=== PATIENT | male | born 1990 | race African-American/Black ===

== ENCOUNTER 2016-06-27 01:29 | Emergency (ER) ==
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
[2016-06-27 04:04] VITALS: BP 128/70
--- NOTE | 2016-06-27 09:13 | Diag Imaging Result Document ---
PROCEDURE NAME: HEAD/C-SPINE W/O CONTRAST - 06/27/[address], 06/27/2016: A CT dose reduction protocol was used. COMPARISON: None. FINDINGS: The ventricles and sulci are normal in size and contour. There is no mass, hemorrhage, or evidence of acute ischemia. The bony calvaria is intact. The visualized paranasal sinuses and mastoid air cells are clear. IMPRESSION: Negative head CT. CT CERVICAL SPINE, 06/27/2016: A CT dose reduction protocol was used. COMPARISON: None. FINDINGS: Alignment is anatomic. Vertebral body heights and intervertebral disc spaces are preserved. Neural foramina are patent. Soft tissues are clear. IMPRESSION: Negative Exam. [facility]
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
== END 2016-06-27 04:04 | disposition home or self-care (01) ==
LOC: ED 01:29
DX: S01.312A Laceration without foreign body of left ear, initial encounter (principal); S01.112A Laceration without foreign body of left eyelid and periocular area, initial encounter; X99.9XXA Assault by unspecified sharp object, initial encounter; R53.83 Other fatigue
CPT/HCPCS: 70450; 70486; 72125